=== PATIENT | male | born 2000 | race Caucasian/White ===

== ENCOUNTER 2023-06-10 08:10 | Emergency (ER) | payer BC, SELFPAY ==
[2023-06-10 08:13] VITALS: BP 138/88; PULSE 64; RESP 14; TEMP 36.7; O2SAT 97
--- NOTE | 2023-06-10 08:33 | ED.GENADUL_ITS ---
Discharge Plan Discharge Details Chief Complaint: PsychEval Primary Care Provider: None,None ED Provider: Vincent Roberto Home Meds and New Rx's Prescriptions: No Action escitalopram oxalate [Lexapro] 20 mg Tablet 20 mg PO DAILY cetirizine-pseudoephedrine [Zyrtec-D] 5-120 mg Tablet Extended Release 12 Hr 1 tab PO PRN PRN multivitamin Tablet 1 tab PO DAILY albuterol sulfate 90 mcg/actuation Hfa Aerosol Inhaler 2 puff INHALATION PRN PRN Medical Decision Making 23 yo male with hx of depression comes in with depression and thoughts of self harm. He apparently was intoxicated last night and had an argument with his parents, vsp was called and was brought to the correctional center until he was sober this morning then referred here. He states he still feels depressed but not sure if he has si currently. He is caox4 speaking clearly in no distress. Normal gait, no focal motor deficits. He has no findings on history or exam to suggest underlying medical process and clinically sober so is medically cleared to speak with mental health pt met with Mimi from [facility] and will be seeking voluntary placement for depression/si. Differential Diagnosis Differential Diagnosis: depression, si HPI General Mode of arrival: ambulatory . Date/Time Provider Initiated Documentation: 06/10/23 08:10 . Limitations to Documentation: no limitations . Information obtained by: patient . History of Present Illness 23 year old M presents to the emergency department with the chief complaint of depression, described as moderate, Patient started experiencing this month(s) (1) and it has been constant. No relieving factors improve symptom(s), No exacerbating factors reported . Patient notes denies chest pain, fever/chills and shortness of breath. Related Data Home Medications Medication Instructions Recorded Confirmed albuterol sulfate 90 mcg/actuation 2 puff inhalation PRN PRN 06/10/23 06/10/23 aerosol inhaler cetirizine 5 mg-pseudoephedrine ER 1 tab PO PRN PRN 06/10/23 06/10/23 120 mg tablet,extended release,12hr (Zyrtec-D) escitalopram oxalate 20 mg tablet 20 mg PO DAILY 06/10/23 06/10/23 (Lexapro) multivitamin 1 tab PO DAILY 06/10/23 06/10/23 Allergies Allergy/AdvReac Type Severity Reaction Status Date / Time ibuprofen Allergy Severe Hives Unverified 06/10/23 08:20 sulfamethoxazole AdvReac Intermediate anxiety Unverified 06/10/23 08:20 [From Bactrim] trimethoprim [From Bactrim] AdvReac Intermediate anxiety Unverified 06/10/23 08:20 mold AdvReac Mild runny nose Unverified 06/10/23 08:20 pollen extracts AdvReac Mild runny nose Unverified 06/10/23 08:20 General Stated Complaint: PsychEval WIN: 2 Review of Systems All systems reviewed & are unremarkable except as noted in HPI and below Constitutional Constitutional: Denies chills, Denies fever(s) and Denies weakness Cardiovascular Cardiovascular: Denies chest pain and Denies dyspnea Respiratory Respiratory: Denies cough and Denies dyspnea Gastrointestinal Gastrointestinal: Denies abdominal pain, Denies nausea and Denies vomiting Musculoskeletal Musculoskeletal: Denies joint swelling Neurologic Neurologic: Denies weakness PFSH Social History Smoking/Tobacco Use Status: Never Smoking risk assessment performed?: Yes Drug use: Occasionally Substance use type: marijuana Details: states last night was binge drinking Housing: house Do you feel safe at home: Yes Do you feel safe in your relationship?: Yes Additional Social history: lives with parents states he feels safe there but doesn't agree with them all the time Exam Const General: no acute distress Orientation: alert HENMT Head: normal to inspection Ears: external ears normal General nose exam: external nose normal Mouth: moist mucous membranes Eyes General: appearance normal, both eyes and all related structures Neck Neck: normal visual inspection Resp Effort & Inspection: normal respiratory effort and able to speak in complete sentences Cardio Rate: regular rate Skin General skin exam: no rashes or lesions noted Neuro General: patient alert and patient oriented x3 Extrem General: normal to inspection Psych Speech and Movement: speech and movement normal Course Vital Signs Vital signs: Vital Signs Temperature 36.7 C 06/10/23 08:13 Pulse 64 06/10/23 08:13 Respiratory Rate 14 06/10/23 08:13 Blood Pressure 138/88 06/10/23 08:13 Pulse Oximetry 97 06/10/23 08:13 Temperature 36.7 C 06/10/23 08:13 Pulse 64 06/10/23 08:13 Respiratory Rate 14 06/10/23 08:13 Respiratory Effort Normal 06/10/23 08:24 Blood Pressure 138/88 06/10/23 08:13 Blood Pressure Position Sitting 06/10/23 08:13 Pulse Oximetry 97 06/10/23 08:13 Oxygen Delivery Method Room Air 06/10/23 08:13 Oxygen Flow Rate 0 06/10/23 08:13 Pain Level 0 06/10/23 08:13 PAWSS Have you Been Recently Intoxicated or Drunk Within the Last 30 days?: Yes Have you Ever Experienced Previous Episodes of Alcohol Withdrawal?: No Have you ever Experienced Withdrawal Seizures?: No Have you ever Experienced Delirium Tremens(DT)s?: No Have you ever undergone Alcohol Rehabilitation Treatment (i.e, inpt ot outpatient treatment programs)?: No Have you ever Experienced Blackouts?: No Have you ever Combined Alcohol with other Downers within the last 90 days?: No Have you ever Combined Alcohol with any other Substance of Abuse during the last 90 days?: No Evidence of Increased Autonomic Activity (i.e. HR>120, tremor, sweating, agitation, nausea)?: No Result: 1
--- NOTE | 2023-06-10 12:55 | PDOC.CMSAFE ---
Date of service: 06/10/23 Time of Service: 12:55 Care Management Safety Plan Status Status: Voluntary Reason for Wait Reason for Wait: Inpatient Admission Safety Plan Safety Plan: CHIEF COMPLAINT: John presents in the ED with depression and suicidal thoughts. He reports binge drinking last evening, then arguing with his parents and threatening to shoot himself with a handgun. Police were called and [facility] prior to coming to the ED. Today he continues to report suicidal ideation but says it isn't as intense as it was yesterday. He shares with CM that he misses his cats and dog as they comfort him when he is upset. He met with Mimi of [facility] earlier and is agreeable to seeking a voluntary placement for mood stabilization. John will remain at [facility] and will be reassessed by [facility] daily until a bed is secured for him. CM will continue to follow. VOLUNTARY FOR INPATIENT PSYCHIATRIC STABILIZATION.? Patient is appropriate in all interactions since arriving at [facility]; Pt has demonstrated appropriate coping and communication skills, has articulated his or her needs and concerns and is fully engaged during staff interactions. Safety plan has been established with patient, and care team, to adhere to patient goals, identify restrictions based on behavioral status, address nutrition, and determine allowed personal belongings, tools for hygiene and personal care. Determine level of activity including ambulation, level of supervision, visitors, and determine privileges based on behaviors and level of engagement by pt. SAFETY PLAN: 1. Will remain on suicide precautions. In Paper Clothes 2. Will remain under direct supervision of one-on-one staff at all times provided by [employer], PR[employer]ER [employer], BREAD MOLDER ship laborer. 3. May have paper cups, plates, finger foods as well as a cardboard spoon with which to eat meals. 4. Follow [facility] Management of the Admitted Behavioral Health Patient policy. 5. Comfort bath system only, shower permitted at RN discretion. 6. No personal belongings-soft items permitted at RN discretion. 7. Visitors: Per [facility] Visitor Policy and at RN discretion. 8. Activities: soft cart items, television and other activities at RN discretion. 9.? Bathroom privileges with escort in the ED, available without limitation in Zone B. 10. Phone: contact limited to family at this time, via [facility] phone at RN discretion. 11. Due to VOLUNTARY status, if patient wishes to leave [facility], staff will contact [facility] Crisis Screener ([phone]) and On-Call Medical Director Occupational Health ([phone]) as soon as possible. In the event of elopement, notify [facility] Police ([phone]). Patient is currently voluntarily at [facility] and seeking inpatient admission when a bed becomes available. [facility] Frontline Tie Tamper will continue seeking placement. Please contact the [employer] Medical Director Occupational Health ([phone]) and [facility] Tie Tamper ([phone]) for any needed changes in the Safety Plan. Safety plan has been provided to interdepartmental care team.
--- NOTE | 2023-06-10 13:30 | PDOC.MHCN ---
Date of service: 06/10/23 Time of Service: 13:30 PHQ-9 Over the last 2 weeks, how often have you been bothered by any of the following problems? 1. Little interest or pleasure in doing things: several days 2. Feeling down, depressed, or hopeless: nearly every day 3. Trouble falling or staying asleep, or sleeping too much: several days 4. Feeling tired or having little energy: more than half the days 5. Poor appetite or overeating: several days 6. Feeling bad about yourself - or that you are a failure or have let yourself and your family down: more than half the days 7. Trouble concentrating on things, such as reading the newspaper or watching television: not at all 8. Moving or speaking so slowly that other people could have noticed? - Or the opposite - being so fidgety or restless that you have been moving around a lot more than usual: not at all 9. Thoughts that you would be better off or of hurting yourself in some way: more than half the days Total score: 12 If you checked off any problems, how difficult have these problems made it for you to do your work, take care of things at home, or get along with other people?: very difficult PHQ-9 Results: Positive Source: Developed by Drs. Malik Harris, Delia Giordano, Augustin Hannah and colleagues, with an educational jason from [employer]. Suicide Severity Rate CSSRS Have you wished you were or wished you could go to sleep and not wake up?: Yes Have you actually had any thoughts of killing yourself?: Yes CSSRS2 Have you been thinking about how you might do this?: Yes Have you had these thoughts and had some intention of acting on them?: Yes Have you started to work out or worked out the details of how to kill yourself? Do you intend to carry out this plan?: Yes CSSRS3 Have you ever done anything, started to do anything or prepared to do anything to end your life?: Yes CSSRS4 Was this within the past three months?: Yes Screening Score Total Score: 8 Screening: Positive Mental Health Emergency Note Release [facility] release signed:: Yes Reason for Visit The [facility] after he was cleared from his protective custody. He is endorsing SI with frustrations relating to his anxiety and depression. This assessment is completed face to face at bed side. In the last 2 weeks has the pt presented for ES prior to today?: Unknown Client Information Client is: New Well Housed: Yes Non Suicidal Self Injury Current: No History: No Safety Risk/Harm to Self or Others Current Ideation to Harm Self or Others: No Risk: Does risk to harm exist?: yes. Access to means: Yes. Types of Means: Firearms and Medication. Counseling provided: Yes Risk: High Risk Duty to warn indicated: No Asssessment/Mental Status Appearance: Disheveled Attitude: Cooperative Behavior: Unremarkable Speech: Normal Affect: Cogruent with mood Mood: Stressed, Depressed and Anxious Thought process: Goal directed Hallucinations: No Delusions: No Attention: Unremarkable Perception: Not impaired Orientation: Fully orientated Memory: Intact Insight: Good Judgement: Good Neurovegetative Symptoms Sleep: No change Appetitie: Decrease Interests: Decrease Energy: Decrease Libido: Not applicable Substance Use: Do you use nicotine?: No Have you used substances in the last 7 days?: yes, ETOH and THC Additional Issues: Assaultive/Threatening Behavior: No Medical Concerns: No Client engaged in active self harm w/weapon: No Threatening to run away: No Child reported abuse/neglect: No Voluntarily presenting for services: Yes Domestic violence is a concern: No Impression The client is a 23 year old, single, male who resides with his mother and step father in [place] [place]. 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 The client reported that he has been struggling with his mental health for awhile now and in the beginning of March after he turned 23 he bought his first firearm with the intent to kill himself with it. He reported that he has been experiencing a lot of anxiety and depression and more so in the past month. He reported he has been butting heads with his mother and step father a lot lately and not agreeing on things. He said he has been thinking more about life and could not find luz in it anymore. He reported he woke up yesterday and could not get himself to go to work so he called out and instead binged drank all day. His parents called [facility] due to his intoxication and threats to end his life by suicide on 06.09.23. He was picked up and placed in protective custody. The mother was not aware until police informed her that there was a gun in the home. The client described his experience last night as scary. I just want to be safe and at home. The client denied current SI however, reported that he has been having thoughts daily for a while also noting I don't want that to happen. He denied any HI or NSSI. He reported use of ETOH 1-2 times a month and the same for THC. He identified his deterrents as his family, job, and hopes that he can get out of this situation. The client stated that his previous PCP referred him for psychiatry however, he has not been seen as of yet. That provider also started him on Lexapro which he said was working initially however, has not been working well since. He reported that prior to beginning this medication he was experiencing ups and downs with his mood. 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 He reports his needs are to have a supportive group of people around him that reciprocate a sense of trust. He has no medical issue other than asthma and allergies. He has utilized therapy off and on and would like to restart that as well. He denied a family history of mental illness or suicide and endorsed a family history of substance abuse and legal issues. He denied any legal issues for himself. The client identified his father leaving when he was a boy as a trauma as he felt he grew up without a father figure. He worries about a sustainable future and being alone. Based on the above information gathered by the client it is likely that he may have a bipolar diagnosis rather than a depression/anxiety yet this can not be fully assessed until he is seen by a psychiatrist. Resources Reosurc reviewed and given:: Other Plan/Disposition Recommended Disposition: Hospitalization facilities contacted. Plan: The client agrees to stay voluntarily at [facility] while inpatient treatment is found. He is willing to engage in this referral and is aware of the process. Intake was completed and referrals will be made to all hospitals as well as [facility] for follow up upon discharge. Person reported agreement to plan: Yes Facilities contacted if Applicable [facility] (Referral sent ) Not accepted, Other [facility] Not accepted, No bed available [facility] Not accepted, Other, [facility] Not accepted, Other Reports/communication Outcome discussed with: ED/Personnel
[2023-06-10 16:00] LABS: Abs Immature Grans 0.02 10^3/uL (0.0-0.06); Absolute Basophil Count 0.07 10^3/uL (0.0-0.2); Absolute Eosinophil Count 0.12 10^3/uL (0.0-0.7); Absolute Lymphocyte Count 0.95 10^3/uL (1.2-3.4); Absolute Monocyte Count 0.83 10^3/uL (0.1-0.8); Absolute Neutrophil Count 4.52 10^3/uL (1.2-6.7); Basophils % 1.1; Eosinophils % 1.8; HCT 47.9 % (40.0-50.0); HGB 15.9 g/dL (13.5-17.5); Immature Grans % 0.3; Lymphocytes % 14.6; MCH 29.3 pg (27.0-33.0); MCHC 33.2 % (32.0-36.0); MCV 88 fL (80-95); MPV 8.3 fL (8.0-11.0); Monocytes % 12.7; Neutrophils % 69.5; Platelet Count 392 10^3/uL (130-400); RBC 5.42 10^6/uL (4.36-5.78); RDW 12.4 % (11.8-14.1); RDW-SD 40.8 fL; WBC 6.51 10^3/uL (4.4-10.8)
[2023-06-10 16:20] LABS: Salicylate < 2.8 mg/dL (<2.8)
[2023-06-10 16:23] LABS: ALT 23 U/L (16-63); AST 25 U/L (15-37); Albumin 4.6 g/dL (3.4-5.0); Alkaline Phosphatase 101 U/L (46-116); Anion Gap 6.5 mmol/L (3-11); BUN 20 mg/dL (7-18); Bilirubin, Total 0.6 mg/dL (0.2-1.0); CO2 31.5 mmol/L (21.0-32.0); Calcium 10.4 mg/dL (8.5-10.1); Chloride 99 mmol/L (98-107); Estimated GFR 109.81 (mL/min/1.73m2); Glucose 110 mg/dL (74-106); Potassium 4.3 mmol/L (3.5-5.1); Sodium 137 mmol/L (136-145); TSH (W/Ref FT4) 3.53 uIU/mL (0.36-3.74); Total Protein 8.8 g/dL (6.4-8.2)
[2023-06-10 16:24] LABS: Acetaminophen < 2 ug/mL (10-30)
[2023-06-10 16:25] LABS: ETHANOL BLOOD < 3.0 mg/dL (<10)
--- NOTE | 2023-06-10 16:47 | ED.PROG_ITS ---
Date of service: 06/10/23 Time of Service: 23:00 Medical Decision Making 1650 This 23-year-old male patient was signed out to me by Dr. Roberto with a chief complaint of suicidal ideation. He evidently got into an argument with his parents last night and the state police were called. He [facility] the night at corrections and then was brought to the emergency department. He is still suicidal. I have reviewed his labs and vital signs and they are normal and stable. The patient had no other complaints in the ED. I have discussed the case with nurse practitioner Marcelino from the [facility] who accepts the patient in transfer. Medical Records Medical records reviewed: Yes I reviewed the patient's medical records. Lab Data Lab results reviewed: Yes I reviewed the patient's lab results. Sign Out Sign Out Data: Sign Out Comment: voluntary for si/depression, awaiting placement Last updated by Vincent Roberto MD at 06/10/23 11:31 Discharge Plan Disposition Patient Disposition: Psychiatric Hospital/Unit Specific Psychiatric Facility: [facility] Condition: Stable Discharge Details Chief Complaint: PsychEval Clinical Impression: Depression with suicidal ideation Primary Care Provider: None,None ED Provider: Abby Wick Home Meds and New Rx's Prescriptions: No Action escitalopram oxalate [Lexapro] 20 mg Tablet 20 mg PO DAILY cetirizine-pseudoephedrine [Zyrtec-D] 5-120 mg Tablet Extended Release 12 Hr 1 tab PO PRN PRN multivitamin Tablet 1 tab PO DAILY albuterol sulfate 90 mcg/actuation Hfa Aerosol Inhaler 2 puff INHALATION PRN PRN Discharge Data Discharge Date/Time-TO BE ENTERED AT DEPARTURE: 06/10/23 22:24
[2023-06-10 17:52] LABS: Bilirubin Negative (Negative); Blood Negative (Negative); Clarity Clear (Clear); Glucose Negative (Negative); Ketones Negative (Negative); Leukocyte Esterase Negative (Negative); Nitrite Negative (Negative); Specific Gravity 1.015 (1.005-1.025); Urobilinogen 0.2 mg/dL (Up to 0.2); pH 7.5 (5-8)
[2023-06-10 17:57] LABS: *AMPHETAMINES SCREEN URINE Negative (Negative); *BARBITURATES SCREEN URINE Negative (Negative); *BENZODIAZEPINES SCREEN URINE Negative (Negative); Cannabinoids THC Positive (Negative); Cocaine Screen,Urine Negative (Negative); METHADONE URINE SCREEN Negative (Negative); OPIATES URINE SCREEN Negative (Negative)
[2023-06-10 17:58] LABS: Tricyclic Antidepressants Negative (Negative)
--- NOTE | 2023-06-10 21:16 | NUR.NOTE ---
Nursing Note: Dale stated that the pt does not need to go to the accepting facility tonight and that they would take him in the morning, This nurse called the facility and updated them on the new plan, they stated that they will be holding his bed and that they will accepting 13/04. after 0300 he will moved into room 9
== END 2023-06-10 22:24 ==
PROVIDERS: Emergency Medicine; Emergency Provider Emergency Medicine
DX: R45.851 Suicidal ideations (principal); F32.A Depression, unspecified
CPT/HCPCS: 80053; 80307; 99284; 80320; 80329; 81003; 84443; 85025